=== PATIENT | female | born 1965 | race Two or more races ===

== ENCOUNTER → 2021-01-05 | Outpatient (CLI) | payer BC ==
[2016-06-17 18:25] VITALS: BP 119/80
[~2021-01-05] MED LIST: AMOX500C PO; OXYC1TAB15 PO
--- NOTE | 2021-01-10 14:00 | RAD ---
EXAM: Bilateral digital screening mammogram with tomosynthesis. HISTORY: 55-year-old female presents for screening mammography. TECHNIQUE: Full-field digital craniocaudal and mediolateral oblique 2D and 3D tomosynthesis images of both breasts are obtained for evaluation. Computer aided detection was applied. COMPARISON: 12/06/2019 BREAST PARENCHYMAL DENSITY: Level C - Heterogeneously dense. FINDINGS: There is a small circumscribed nodular density within the 6:30 position of the left breast at mid depth which may be cutaneous or subcutaneous in location, without a clear correlate on prior s tudies. There are additional areas of nodularity which are stable in appearance. There is no suspicio us calcification or architectural distortion. IMPRESSION: BI-RADS Category 0: Incomplete. Additional imaging needed. RECOMMENDATION: Further evaluation with a left breast sonogram is recommended to assess a small circu mscribed nodular density at the 6:30 position at mid depth. This may be subcutaneous or cutaneous in location. If your mammogram demonstrates that you have dense breast tissue, which could hide abnormalities, and if you have other risk factors for breast cancer that have been identified, you might benefit from s upplemental screening tests that may be suggested by your ordering physician. Dense breast tissue, i n and of itself, is a relatively common condition. This information is not provided to cause undue c oncern, but rather to raise your awareness and to promote discussion with your physician regarding th e presence of other risk factors, in addition to dense breast tissue. A report of your mammography re sults will be sent to you and your physician. You should contact your physician if you have any ques tions or concerns regarding this report. Mammography is a sensitive method for finding small breast cancers, but it does not detect them all a nd is not a substitute for careful clinical examination. A negative mammogram does not negate a clin ically suspicious finding and should not result in delay in biopsying a clinically suspicious abnorma lity. PQRS compliance statement - Patient information was entered into a reminder system with a target due date for the next mammogram. "Our facility is accredited by the [employer] Mamm[employer]." Electronically signed by: Sandra Claros MD (01/10/2021 1:58 PM) [id number]
== END ==
LOC: MAMMO 08:56
PROVIDERS: ATTEND Family Medicine
DX: Z12.31 Encounter for screening mammogram for malignant neoplasm of breast (principal)
CPT/HCPCS: 77063; 77067

== ENCOUNTER → 2021-01-17 | Outpatient (CLI) | payer BC ==
[2016-06-17 18:25] VITALS: BP 119/80
--- NOTE | 2021-01-17 13:20 | RAD ---
EXAM: Left breast sonogram. HISTORY: 55-year-old female presents for evaluation of nodularity within the left breast demonstrated on a mammogram performed 01/05/2021. TECHNIQUE: Sonographic imaging of the left breast targeted to the site of mammographic nodularity was performed. COMPARISON: 01/05/2021. FINDINGS: There is no suspicious sonographic correlate for the small nodular densities concern within the superficial aspect of the right breast at the 6:30 position at mid depth. The absence of a sonog raphic correlate favors a benign etiology such as a sonographically occult lymph node or cutaneous le latasha. There are few additional similar-appearing circumscribed nodular densities within the left terry st which are stable, also favoring benignity. IMPRESSION: 1. No suspicious sonographic correlate for nodularity within the right breast at the 6:30 position. T he mammographic appearance and presence a similar-appearing nodular densities which are stable compar ed to prior studies favors a benign etiology such as a sonographically occult lymph node or skin mole . 2. BI-RADS Category 3: Probably benign finding(s). Precautionary short term follow up with a diagnost ic left breast mammogram in 6 months is recommended. Electronically signed by: Sandra Claros MD (01/17/2021 1:18 PM) [id number]
== END ==
LOC: US 12:44
PROVIDERS: ATTEND Family Medicine
DX: R92.2 Inconclusive mammogram (principal)
CPT/HCPCS: 76641